=== PATIENT | male | born 1980 | race Caucasian/White ===

== ENCOUNTER 2024-04-11 20:09 | Observation (INO) | payer OTHER ==
[2024-04-11 20:47] LABS: #Basophils 0.12 10x3/uL (0.0-0.2); %Basophils 0.9 % (0.0-1.0); %Lymphocytes 19.5 % (21.0-51.0); %Monocytes 6.2 % (0.0-10.0); %Neutrophils 71.7 % (42.0-75.0); Hematocrit 42.6 % (42.0-52.0); Hemoglobin 14.2 g/dL (14.0-18.0); Mean Corpuscular HGB CONC 33.3 g/dL (32.0-36.0); Mean Corpuscular Hemoglobin 30.3 pg (27.0-31.0); Mean Corpuscular Volume 90.8 fL (78.0-98.0); Mean Platelet Volume 8.9 fL (7.4-10.4); Platelet Count 411 10x3/uL (130-400); RBC Distribution Width 12.6 % (11.5-14.5); Red Blood Cell (RBC) Count 4.69 mill/uL (4.70-6.10)
[2024-04-11 21:05] LABS: ALT (SGPT) 34 U/L (8-55); AST (SGOT) 25 U/L (5-34); Albumin 4.2 g/dL (3.5-5.0); Alkaline Phosphatase 85 U/L (40-110); Anion Gap 14 mmol/L (10-20); BUN (Urea Nitrogen) 15 mg/dL (8.9-20.6); Bilirubin, Total 0.3 mg/dL (0.2-1.2); Calc. Creatinine Clearance 0 mL/min (70-130); Calcium 9.2 mg/dL (7.8-10.44); Carbon Dioxide 24 mmol/L (22-29); Chloride 107 mmol/L (98-107); Estimated GFR 79; Globulin 3.4 g/dL (2.4-3.5); Glucose 130 mg/dL (70-105); Lipase 36 U/L (8-78); Potassium 3.7 mmol/L (3.5-5.1); Protein, Total 7.6 g/dL (6.0-8.3); Sodium 141 mmol/L (136-145)
[2024-04-11 21:08] LABS: Troponin I 0.033 ng/mL (< 0.028)
[2024-04-11] MEDS ORDERED: Aspirin Chewable 81 MG TAB ONE (22:57)
[2024-04-12 02:16] VITALS: BMI 34.7
[2024-04-12 03:01] LABS: Troponin I 0.039 ng/mL (< 0.028)
[2024-04-12 07:28] LABS: Troponin I 0.029 ng/mL (< 0.028)
[2024-04-12] MEDS ORDERED: Nitroglycerin 0.4 MG TAB (25 Tab Bottle) SL PRN (07:50)
[2024-04-12] MEDS: Lisinopril 20 MG TAB PO SCH (08:23)
[2024-04-12] MEDS: Ezetimibe 10 MG TAB PO SCH (08:23)
[2024-04-12] MEDS: DULoxetine 60 MG CAP PO SCH (08:23)
[2024-04-12] MEDS: Aspirin Chewable 81 MG TAB PO SCH (08:23)
[2024-04-12] MEDS: Docusate 100 MG CAP PO SCH (08:23)
[2024-04-12] MEDS: Metoprolol Tartrate 25 MG TAB PO SCH ×2 (12:28→12:33)
[2024-04-12] MEDS: Enoxaparin 40 MG (0.4 mL) SYRINGE SC SCH (12:33)
[2024-04-12] MEDS: metFORMIN 500 MG TAB PO SCH (12:33)
[2024-04-12] MEDS: Acetaminophen 500 MG TAB PO PRN (14:51)
[2024-04-12 17:42] VITALS: BP 164/84; TEMP 97.7
== END 2024-04-12 18:31 | disposition home or self-care (01) ==
LOC: ERS 20:09 → OBS 04-12 01:53
PROVIDERS: ADMIT Hospitalist; ATTEND Student in an Organized Health Care Education/Training Program
PROC: B246YZZ Ultrasonography of Right and Left Heart using Other Contrast (ICD-10-PCS; principal; 2024-04-12)
DX: R07.89 Other chest pain (principal); I42.1 Obstructive hypertrophic cardiomyopathy; E11.9 Type 2 diabetes mellitus without complications; I10 Essential (primary) hypertension; F41.9 Anxiety disorder, unspecified; I21.4 Non-ST elevation (NSTEMI) myocardial infarction; E78.5 Hyperlipidemia, unspecified; Z98.890 Other specified postprocedural states; Z88.0 Allergy status to penicillin; Z88.8 Allergy status to other drugs, medicaments and biological substances; Z90.89 Acquired absence of other organs; Z79.82 Long term (current) use of aspirin; Z79.899 Other long term (current) drug therapy; Z79.84 Long term (current) use of oral hypoglycemic drugs
CPT/HCPCS: 36415; 71045; 80053; 83690; 84484; 85025; 93005; 93306; G0378

== ENCOUNTER 2024-04-21 13:58 | Emergency (ER) | payer OTHER ==
[2024-04-21] MEDS ORDERED: Prochlorperazine 10 MG/2 ML VIAL ONE (14:50)
[2024-04-21] MEDS ORDERED: Acetaminophen 500 MG TAB ONE (14:50)
[2024-04-21] MEDS ORDERED: Ketorolac Tromethamine 30 MG (1 mL) VIAL ONE (14:50)
== END 2024-04-21 15:48 | disposition home or self-care (01) ==
LOC: ERS 13:58
DX: R51.9 Headache, unspecified (principal); I10 Essential (primary) hypertension; E11.9 Type 2 diabetes mellitus without complications
CPT/HCPCS: 96374; 96375; J0780; J1885